=== PATIENT | male | born 1930 | race Caucasian/White ===

== ENCOUNTER 2017-11-12 14:12 | Emergency (ER) | payer MEDICARE ==
[~2017-11-12] VITALS: Ht 177.8 cm; Wt 80.0 kg
[~2017-11-12 14:12] MED LIST: AMIO100T4 PO; APIX5TAB PO; ASPI-496 PO; ASPI81TA50 PO; CYAN100028 PO; GUAR1TAB6 MT; LEVO50TA5 PO; LEVO75TA5 PO; LIOT5TAB3 PO; LOSA25TA2 PO; LOSA25TA6 PO; MELO15TA24 PO; METO-93 PO; METO25TA35 PO; METO25TA91 PO; OMEG300C PO; PRAS25CA6 MT; RED600TA PO
[2017-11-12] MEDS ORDERED: ASPIRIN 81 MG TABLET CHEW ONE (14:28)
[2017-11-12] MEDS ORDERED: SODIUM CHLORIDE FLUSH 10ML SYR IVF ONE (14:30)
[2017-11-12] MEDS ORDERED: PLEASE ENTER HEIGHT AND WEIGHT MC SCH (14:30)
[2017-11-12] MEDS ORDERED: ASPIRIN 81 MG TABLET CHEW PO ONE (14:30)
[2017-11-12 14:38] LABS: BASOPHILS # (AUTO) 0.06 x10^3/uL (0-0.1); BASOPHILS % (AUTO) 1 % (0-1); EOSINOPHILS # (AUTO) 0.29 x10^3/uL (0-0.4); EOSINOPHILS % (AUTO) 3 % (1-7); LYMPHOCYTES # (AUTO) 3.29 x10^3/uL (1-3.4); LYMPHOCYTES % (AUTO) 28 % (22-44); MD NO; MEAN CORPUSCULAR HEMOGLOBIN 31.7 pg (27.5-34.5); MEAN CORPUSCULAR HGB CONC 33.6 g/dL (33.2-36.2); MEAN CORPUSCULAR VOLUME 94.1 fL (81-97); MEAN PLATELET VOLUME 7.5 fL (7.4-10.4); MONOCYTES # (AUTO) 1.21 x10^3/uL (0.2-0.8); MONOCYTES % (AUTO) 10 % (2-9); NEUTROPHILS # (AUTO) 6.93 x10^3/uL (1.8-6.8); NEUTROPHILS % (AUTO) 59 % (42-75); PLATELET COUNT 270 x10^3/uL (130-400); RED BLOOD COUNT 5.11 x10^6/uL (4.38-5.82); RED CELL DISTRIBUTION WIDTH 14.6 % (9.4-14.8)
[2017-11-12] MEDS ORDERED: LEVO88TA4 PO (14:41)
[2017-11-12] MEDS ORDERED: ALLO100T30 PO (14:42)
[2017-11-12] MEDS ORDERED: multivitamin (14:42)
[2017-11-12 14:45] LABS: ALANINE AMINOTRANSFERASE 24 U/L (12-78); ALBUMIN 4.4 g/dL (3.4-5.0); ANION GAP 9 mmol/L (5-15); CALCIUM 9.1 mg/dL (8.5-10.1); CHLORIDE 105 mmol/L (98-107); CREATININE 1.19 mg/dL (0.7-1.3); INTERNATIONAL NORMALIZED RATIO 1.07 (0.93-1.1); PROTHROMBIN TIME 11.1 Seconds (9.6-11.5)
[2017-11-12 14:49] LABS: ALKALINE PHOSPHATASE 86 U/L (45-117); BILIRUBIN,TOTAL 0.5 mg/dL (0.2-1.0); TROPONIN I < 0.015 ng/mL (0.000-0.045)
[2017-11-12] MEDS ORDERED: MAALOX/HYOSCYAMINE/LIDOCAINE 45 ML BTL ONE (16:46)
[2017-11-12] MEDS ORDERED: MAALOX/HYOSCYAMINE/LIDOCAINE 45 ML BTL PO ONE (17:00)
[2017-11-12 17:55] VITALS: BP 158/97
== END 2017-11-12 18:09 | disposition home or self-care (01) ==
LOC: ED 17:40
DX: R07.89 Other chest pain (principal); E03.9 Hypothyroidism, unspecified; E78.00 Pure hypercholesterolemia, unspecified; I48.91 Unspecified atrial fibrillation; I10 Essential (primary) hypertension; Z95.0 Presence of cardiac pacemaker
CPT/HCPCS: 36415; 71045; 80053; 84484; 85025; 85610; 85730; 93005; 99285

== ENCOUNTER → 2017-11-25 | Outpatient (CLI) | payer MEDICARE ==
[~2017-11-25] MED LIST changes: +ALLO100T30 PO; +LEVO88TA4 PO; +multivitamin
== END | disposition home or self-care (01) ==
LOC: CFH 12:26
PROVIDERS: ATTEND Family Medicine
DX: M25.475 Effusion, left foot (principal)

== ENCOUNTER → 2018-08-28 | Outpatient (CLI) | payer MEDICARE ==
[~2018-08-28] MED LIST changes: +LOSA25TA25 PO; -LOSA25TA6 PO
== END | disposition home or self-care (01) ==
LOC: CFH 11:00
PROVIDERS: ATTEND Nurse Practitioner Family
DX: S33.130A Subluxation of L3/L4 lumbar vertebra, initial encounter (principal); I71.4 Abdominal aortic aneurysm, without rupture; M47.816 Spondylosis without myelopathy or radiculopathy, lumbar region; X58.XXXA Exposure to other specified factors, initial encounter; Y93.89 Activity, other specified; Y92.89 Other specified places as the place of occurrence of the external cause; Y99.8 Other external cause status
CPT/HCPCS: 72110

== ENCOUNTER 2019-10-12 09:48 | Outpatient (CLI) | payer MEDICARE ==
[~2019-10-12 09:48] MED LIST changes: +LIOT5TAB11 PO; -LIOT5TAB3 PO
[2019-10-13] MEDS ORDERED: APIX5TAB PO (19:42)
== END 2019-10-12 23:59 | disposition home or self-care (01) ==
LOC: CVU 09:48
PROVIDERS: ATTEND Internal Medicine Cardiovascular Disease
DX: I11.9 Hypertensive heart disease without heart failure (principal); I08.3 Combined rheumatic disorders of mitral, aortic and tricuspid valves; I25.10 Atherosclerotic heart disease of native coronary artery without angina pectoris; I48.0 Paroxysmal atrial fibrillation; E78.5 Hyperlipidemia, unspecified; Z95.0 Presence of cardiac pacemaker
CPT/HCPCS: 93306; 93880

== ENCOUNTER 2019-10-29 12:30 | Inpatient (IN) | payer MEDICARE ==
[~2019-10-29] VITALS: Ht 175.3 cm; Wt 83.3 kg
[~2019-10-29 12:30] MED LIST changes: +OXYC5TAB3 PO; +PANT40TA5 PO
[2019-10-29] MEDS ORDERED: DIPH,PERTUSS(ACELL),TET VAC/PF 0.5 ML IM-VACC ONE ×2 (13:17→13:30)
[2019-10-29] MEDS ORDERED: ONDANSETRON 2MG/ML, 2ML ONE (13:23)
[2019-10-29] MEDS ORDERED: SODIUM CHLORIDE FLUSH 10ML SYR IVF ONE (13:30)
--- NOTE | 2019-10-29 13:46 | NUR ---
LABS COMPLETED. AWAITING CT AT THIS TIME. PT RESTING COMFORTABLY IN BED. AT BEDSIDE. TDAP ADMIN.
[2019-10-29 13:52] LABS: ALBUMIN 2.8 g/dL (3.4-5.0); ANION GAP 8 mmol/L (5-15); CALCIUM 8.5 mg/dL (8.5-10.1); CHLORIDE 106 mmol/L (98-107); CREATININE 0.98 mg/dL (0.7-1.3)
[2019-10-29 13:53] LABS: BASOPHILS # (AUTO) 0.02 x10^3/uL (0-0.1); BASOPHILS % (AUTO) 0 % (0-1); EOSINOPHILS # (AUTO) 0.26 x10^3/uL (0-0.4); EOSINOPHILS % (AUTO) 2 % (1-7); LYMPHOCYTES # (AUTO) 1.54 x10^3/uL (1-3.4); LYMPHOCYTES % (AUTO) 14 % (22-44); MD NO; MEAN CORPUSCULAR HEMOGLOBIN 31.7 pg (27.5-34.5); MEAN CORPUSCULAR HGB CONC 33.1 g/dL (33.2-36.2); MEAN CORPUSCULAR VOLUME 95.9 fL (81-97); MEAN PLATELET VOLUME 7.5 fL (7.4-10.4); MONOCYTES # (AUTO) 1.29 x10^3/uL (0.2-0.8); MONOCYTES % (AUTO) 12 % (2-9); NEUTROPHILS % (AUTO) 72 % (42-75); PLATELET COUNT 543 x10^3/uL (130-400); RED CELL DISTRIBUTION WIDTH 16.6 % (9.4-14.8)
[2019-10-29 14:00] LABS: INTERNATIONAL NORMALIZED RATIO 1.09 (0.93-1.1); PROTHROMBIN TIME 11.2 Seconds (9.6-11.5)
--- NOTE | 2019-10-29 14:21 | NUR ---
PT TO CT NOW
[2019-10-29] MEDS ORDERED: OMNIPAQUE 350 MG/ML, 100ML BOTTLE ONE (14:45)
--- NOTE | 2019-10-29 15:22 | NUR ---
BREAK RN: PT RESTING ON YANG. NADN. FREITAS.
[2019-10-29] MEDS ORDERED: ONDANSETRON ODT 4 MG PO PRN (17:00)
[2019-10-29] MEDS ORDERED: hydrALAzine 20 MG/ML, 1ML IVPush PRN (17:00)
[2019-10-29] MEDS ORDERED: LABETALOL 5MG/ML, 20ML IVPush PRN (17:00)
[2019-10-29] MEDS ORDERED: ONDANSETRON 2MG/ML, 2ML IVPush PRN (17:00)
[2019-10-29] MEDS ORDERED: GUAIFENESIN/DM 200-20MG, 10ML UDC PO PRN (17:00)
[2019-10-29] MEDS ORDERED: MELATONIN 5 MG TABLET PO PRN (17:00)
[2019-10-29] MEDS ORDERED: BUTALB/APAP/CAFFEINE 50MG/325MG/40MG PO PRN (17:00)
[2019-10-29 19:50] VITALS: BP 115/75
[2019-10-30 01:52] VITALS: BP 110/70
[2019-10-30 06:11] LABS: BASOPHILS # (AUTO) 0.02 x10^3/uL (0-0.1); BASOPHILS % (AUTO) 0 % (0-1); EOSINOPHILS # (AUTO) 0.31 x10^3/uL (0-0.4); EOSINOPHILS % (AUTO) 3 % (1-7); LYMPHOCYTES # (AUTO) 1.73 x10^3/uL (1-3.4); LYMPHOCYTES % (AUTO) 18 % (22-44); MD NO; MEAN CORPUSCULAR HEMOGLOBIN 31.3 pg (27.5-34.5); MEAN CORPUSCULAR HGB CONC 32.7 g/dL (33.2-36.2); MEAN CORPUSCULAR VOLUME 95.7 fL (81-97); MEAN PLATELET VOLUME 7.9 fL (7.4-10.4); MONOCYTES # (AUTO) 1.36 x10^3/uL (0.2-0.8); MONOCYTES % (AUTO) 14 % (2-9); NEUTROPHILS # (AUTO) 6.08 x10^3/uL (1.8-6.8); NEUTROPHILS % (AUTO) 64 % (42-75); PLATELET COUNT 505 x10^3/uL (130-400); RED BLOOD COUNT 3.01 x10^6/uL (4.38-5.82); RED CELL DISTRIBUTION WIDTH 16.3 % (9.4-14.8)
[2019-10-30 06:24] LABS: ALANINE AMINOTRANSFERASE 110 U/L (12-78); ALBUMIN 2.8 g/dL (3.4-5.0); ANION GAP 9 mmol/L (5-15); CALCIUM 8.7 mg/dL (8.5-10.1); CHLORIDE 109 mmol/L (98-107); CREATININE 0.87 mg/dL (0.7-1.3)
[2019-10-30 06:26] LABS: ALKALINE PHOSPHATASE 139 U/L (45-117); BILIRUBIN,TOTAL 0.7 mg/dL (0.2-1.0); TOTAL PROTEIN 6.1 g/dL (6.4-8.2)
[2019-10-30 07:19] VITALS: BP 118/73
[2019-10-30] MEDS: SENNA/DOCUSATE TABLET PO SCH (09:00)
[2019-10-30] MEDS: D5%-0.45NACL+KCL 20MEQ 1,000 ML IV SCH ×2 (12:09→22:50)
[2019-10-30 15:26] VITALS: BP 98/56
[2019-10-30] MEDS: PANTOPRAZOLE 40 MG IV IVPush SCH ×2 (15:30→22:50)
[2019-10-30 16:40] LABS: MEAN CORPUSCULAR HEMOGLOBIN 30.7 pg (27.5-34.5); MEAN CORPUSCULAR HGB CONC 31.5 g/dL (33.2-36.2); MEAN CORPUSCULAR VOLUME 97.7 fL (81-97); MEAN PLATELET VOLUME 6.9 fL (7.4-10.4); PLATELET COUNT 520 x10^3/uL (130-400); RED BLOOD COUNT 3.05 x10^6/uL (4.38-5.82); RED CELL DISTRIBUTION WIDTH 17.4 % (9.4-14.8)
[2019-10-30 17:08] LABS: BASOPHILS # (AUTO) 0.03 x10^3/uL (0-0.1); BASOPHILS % (AUTO) 0 % (0-1); EOSINOPHILS % (AUTO) 0 % (1-7); LYMPHOCYTES # (AUTO) 1.47 x10^3/uL (1-3.4); LYMPHOCYTES % (AUTO) 15 % (22-44); MD SCAN; MONOCYTES # (AUTO) 1.29 x10^3/uL (0.2-0.8); MONOCYTES % (AUTO) 13 % (2-9); NEUTROPHILS # (AUTO) 6.82 x10^3/uL (1.8-6.8); NEUTROPHILS % (AUTO) 71 % (42-75)
[2019-10-30 19:09] VITALS: BP 110/68
[2019-10-31 01:04] VITALS: BP 113/71
[2019-10-31 05:52] LABS: BASOPHILS # (AUTO) 0.03 x10^3/uL (0-0.1); BASOPHILS % (AUTO) 0 % (0-1); EOSINOPHILS # (AUTO) 0.41 x10^3/uL (0-0.4); EOSINOPHILS % (AUTO) 5 % (1-7); LYMPHOCYTES # (AUTO) 1.63 x10^3/uL (1-3.4); LYMPHOCYTES % (AUTO) 21 % (22-44); MD NO; MEAN CORPUSCULAR HEMOGLOBIN 31.3 pg (27.5-34.5); MEAN CORPUSCULAR HGB CONC 32.6 g/dL (33.2-36.2); MEAN CORPUSCULAR VOLUME 96.1 fL (81-97); MEAN PLATELET VOLUME 7.4 fL (7.4-10.4); MONOCYTES % (AUTO) 15 % (2-9); NEUTROPHILS # (AUTO) 4.64 x10^3/uL (1.8-6.8); NEUTROPHILS % (AUTO) 59 % (42-75); PLATELET COUNT 493 x10^3/uL (130-400); RED BLOOD COUNT 2.85 x10^6/uL (4.38-5.82); RED CELL DISTRIBUTION WIDTH 16.4 % (9.4-14.8)
[2019-10-31 06:00] LABS: ALBUMIN 2.5 g/dL (3.4-5.0); ANION GAP 6 mmol/L (5-15); CALCIUM 8.6 mg/dL (8.5-10.1); CHLORIDE 111 mmol/L (98-107); CREATININE 0.82 mg/dL (0.7-1.3)
[2019-10-31 06:38] VITALS: BP 102/64
[2019-10-31] MEDS: PANTOPRAZOLE 40 MG IV IVPush SCH ×2 (07:35→22:31)
[2019-10-31] MEDS: D5%-0.45NACL+KCL 20MEQ 1,000 ML IV SCH ×2 (07:35→22:31)
[2019-10-31] MEDS: SENNA/DOCUSATE TABLET PO SCH (07:35)
[2019-10-31] MEDS ORDERED: ALLOPURINOL 100 MG TABLET PO SCH (11:30)
[2019-10-31] MEDS: MULTIVITS,STRESS FORMULA 1 TABLET PO SCH (11:57)
[2019-10-31] MEDS: ALLOPURINOL 100 MG TABLET PO SCH (11:57)
[2019-10-31] MEDS: ZINC SULFATE 220 MG CAPSULE PO SCH (11:57)
[2019-10-31] MEDS: CHOLECALCIFEROL 5,000u TAB PO SCH (11:57)
[2019-10-31 12:21] VITALS: BP 108/71
[2019-10-31] MEDS: ASCORBIC ACID 500 MG TABLET PO SCH (17:05)
[2019-10-31 18:47] VITALS: BP 112/68
[2019-11-01 01:23] VITALS: BP 99/63
[2019-11-01 05:51] LABS: BASOPHILS # (AUTO) 0.03 x10^3/uL (0-0.1); BASOPHILS % (AUTO) 0 % (0-1); EOSINOPHILS # (AUTO) 0.39 x10^3/uL (0-0.4); EOSINOPHILS % (AUTO) 5 % (1-7); LYMPHOCYTES # (AUTO) 1.65 x10^3/uL (1-3.4); LYMPHOCYTES % (AUTO) 21 % (22-44); MD NO; MEAN CORPUSCULAR HEMOGLOBIN 31.8 pg (27.5-34.5); MEAN CORPUSCULAR HGB CONC 33.1 g/dL (33.2-36.2); MEAN CORPUSCULAR VOLUME 96.1 fL (81-97); MEAN PLATELET VOLUME 7.8 fL (7.4-10.4); MONOCYTES # (AUTO) 1.08 x10^3/uL (0.2-0.8); MONOCYTES % (AUTO) 14 % (2-9); NEUTROPHILS # (AUTO) 4.63 x10^3/uL (1.8-6.8); NEUTROPHILS % (AUTO) 60 % (42-75); PLATELET COUNT 477 x10^3/uL (130-400); RED BLOOD COUNT 2.94 x10^6/uL (4.38-5.82); RED CELL DISTRIBUTION WIDTH 16.2 % (9.4-14.8)
[2019-11-01 06:02] LABS: ALBUMIN 2.7 g/dL (3.4-5.0); ANION GAP 7 mmol/L (5-15); CALCIUM 8.3 mg/dL (8.5-10.1); CHLORIDE 110 mmol/L (98-107); CREATININE 0.84 mg/dL (0.7-1.3)
[2019-11-01 06:52] VITALS: BP 126/76
[2019-11-01] MEDS: PANTOPRAZOLE 40 MG IV IVPush SCH ×2 (08:00→20:54)
[2019-11-01] MEDS: MULTIVITS,STRESS FORMULA 1 TABLET PO SCH (08:00)
[2019-11-01] MEDS: D5%-0.45NACL+KCL 20MEQ 1,000 ML IV SCH (08:00)
[2019-11-01] MEDS: SENNA/DOCUSATE TABLET PO SCH (08:00)
[2019-11-01] MEDS: ZINC SULFATE 220 MG CAPSULE PO SCH (08:08)
[2019-11-01] MEDS: CHOLECALCIFEROL 5,000u TAB PO SCH (08:08)
[2019-11-01] MEDS: ASCORBIC ACID 500 MG TABLET PO SCH ×2 (08:09→17:37)
[2019-11-01] MEDS: ALLOPURINOL 100 MG TABLET PO SCH (08:09)
[2019-11-01 12:30] VITALS: BP 111/74
[2019-11-01 13:00] VITALS: BP 113/74
[2019-11-01 13:12] LABS: MEAN CORPUSCULAR HEMOGLOBIN 31.2 pg (27.5-34.5); MEAN CORPUSCULAR HGB CONC 32.4 g/dL (33.2-36.2); MEAN CORPUSCULAR VOLUME 96.3 fL (81-97); MEAN PLATELET VOLUME 7.3 fL (7.4-10.4); PLATELET COUNT 523 x10^3/uL (130-400); RED BLOOD COUNT 3.32 x10^6/uL (4.38-5.82); RED CELL DISTRIBUTION WIDTH 16.4 % (9.4-14.8)
[2019-11-01 13:23] LABS: TROPONIN I < 0.015 ng/mL (0.000-0.045)
[2019-11-01 13:44] LABS: BASOPHILS # (AUTO) 0.03 x10^3/uL (0-0.1); BASOPHILS % (AUTO) 0 % (0-1); EOSINOPHILS # (AUTO) 0.53 x10^3/uL (0-0.4); EOSINOPHILS % (AUTO) 5 % (1-7); LYMPHOCYTES # (AUTO) 2.67 x10^3/uL (1-3.4); LYMPHOCYTES % (AUTO) 25 % (22-44); MD SCAN; MONOCYTES # (AUTO) 1.48 x10^3/uL (0.2-0.8); MONOCYTES % (AUTO) 14 % (2-9); NEUTROPHILS # (AUTO) 6.17 x10^3/uL (1.8-6.8); NEUTROPHILS % (AUTO) 57 % (42-75)
[2019-11-01] MEDS ORDERED: OMNIPAQUE 350 MG/ML, 100ML BOTTLE ONE (15:09)
[2019-11-01 18:49] LABS: TROPONIN I < 0.015 ng/mL (0.000-0.045)
[2019-11-01 20:41] VITALS: BP 114/69
[2019-11-02] MEDS ORDERED: LACTATED RINGERS 1,000 ML IV SCH
[2019-11-02 00:01] VITALS: BP 117/70
[2019-11-02 04:53] LABS: BASOPHILS # (AUTO) 0.03 x10^3/uL (0-0.1); BASOPHILS % (AUTO) 0 % (0-1); EOSINOPHILS # (AUTO) 0.35 x10^3/uL (0-0.4); EOSINOPHILS % (AUTO) 4 % (1-7); LYMPHOCYTES # (AUTO) 1.96 x10^3/uL (1-3.4); LYMPHOCYTES % (AUTO) 23 % (22-44); MD NO; MEAN CORPUSCULAR HEMOGLOBIN 31.4 pg (27.5-34.5); MEAN CORPUSCULAR HGB CONC 32.7 g/dL (33.2-36.2); MEAN PLATELET VOLUME 7.8 fL (7.4-10.4); MONOCYTES # (AUTO) 1.04 x10^3/uL (0.2-0.8); MONOCYTES % (AUTO) 12 % (2-9); NEUTROPHILS # (AUTO) 5.07 x10^3/uL (1.8-6.8); NEUTROPHILS % (AUTO) 60 % (42-75); PLATELET COUNT 441 x10^3/uL (130-400); RED BLOOD COUNT 2.82 x10^6/uL (4.38-5.82); RED CELL DISTRIBUTION WIDTH 16.3 % (9.4-14.8)
[2019-11-02] MEDS: LEVOTHYROXINE 88 MCG TABLET PO SCH (05:52)
[2019-11-02] MEDS ORDERED: CHLORHEXIDINE 15 ML UDC MM ONE (06:30)
[2019-11-02 06:35] VITALS: BP 111/64
[2019-11-02] MEDS: SENNA/DOCUSATE TABLET PO SCH (07:26)
[2019-11-02] MEDS: PANTOPRAZOLE 40 MG IV IVPush SCH ×2 (07:35→20:09)
[2019-11-02] MEDS: ASCORBIC ACID 500 MG TABLET PO SCH (08:00)
[2019-11-02] MEDS ORDERED: PROPOFOL 10 MG/ML, 100ML IV ONE (08:44)
[2019-11-02] MEDS: ZINC SULFATE 220 MG CAPSULE PO SCH (09:00)
[2019-11-02] MEDS: CHOLECALCIFEROL 5,000u TAB PO SCH (09:00)
[2019-11-02] MEDS: ALLOPURINOL 100 MG TABLET PO SCH (09:00)
[2019-11-02] MEDS: MULTIVITS,STRESS FORMULA 1 TABLET PO SCH (09:00)
[2019-11-02 12:29] VITALS: BP 114/65
[2019-11-02] MEDS ORDERED: OMNIPAQUE 350 MG/ML, 75ML BOTTLE ONE (16:41)
[2019-11-02 19:18] VITALS: BP 107/69
[2019-11-02 23:53] VITALS: BP 106/67
[2019-11-03] MEDS: LEVOTHYROXINE 88 MCG TABLET PO SCH (05:23)
[2019-11-03 05:31] LABS: BASOPHILS # (AUTO) 0.03 x10^3/uL (0-0.1); BASOPHILS % (AUTO) 0 % (0-1); EOSINOPHILS # (AUTO) 0.41 x10^3/uL (0-0.4); EOSINOPHILS % (AUTO) 5 % (1-7); LYMPHOCYTES # (AUTO) 1.95 x10^3/uL (1-3.4); LYMPHOCYTES % (AUTO) 24 % (22-44); MD NO; MEAN CORPUSCULAR HEMOGLOBIN 31.5 pg (27.5-34.5); MEAN CORPUSCULAR VOLUME 95.3 fL (81-97); MEAN PLATELET VOLUME 7.6 fL (7.4-10.4); MONOCYTES # (AUTO) 0.85 x10^3/uL (0.2-0.8); MONOCYTES % (AUTO) 11 % (2-9); NEUTROPHILS # (AUTO) 4.76 x10^3/uL (1.8-6.8); NEUTROPHILS % (AUTO) 60 % (42-75); PLATELET COUNT 430 x10^3/uL (130-400); RED CELL DISTRIBUTION WIDTH 16.4 % (9.4-14.8)
[2019-11-03 05:43] LABS: ANION GAP 9 mmol/L (5-15); CALCIUM 8.7 mg/dL (8.5-10.1); CHLORIDE 108 mmol/L (98-107)
[2019-11-03 05:45] LABS: CREATININE 0.76 mg/dL (0.7-1.3)
[2019-11-03] MEDS ORDERED: POTASSIUM CHLORIDE 20 MEQ TAB.ER.PRT PO ONE (06:30)
[2019-11-03 06:38] VITALS: BP 110/68
[2019-11-03] MEDS ORDERED: FENTANYL PF 100 MCG/2ML IV PRN (08:00)
[2019-11-03] MEDS: SENNA/DOCUSATE TABLET PO SCH (08:06)
[2019-11-03] MEDS: MULTIVITS,STRESS FORMULA 1 TABLET PO SCH (08:06)
[2019-11-03] MEDS: ALLOPURINOL 100 MG TABLET PO SCH (08:06)
[2019-11-03] MEDS: PANTOPRAZOLE 40 MG IV IVPush SCH (08:10)
[2019-11-03] MEDS ORDERED: CHLORHEXIDINE 15 ML UDC ONE (08:28)
[2019-11-03] MEDS ORDERED: FENTANYL PF 100 MCG/2ML ONE (08:50)
[2019-11-03] MEDS ORDERED: SUCCINYLCHOLINE 20 MG/ML, 10ML ONE (08:57)
[2019-11-03] MEDS ORDERED: PROPOFOL 10 MG/ML, 20ML ONE (08:57)
[2019-11-03 12:14] VITALS: BP 105/64
== END 2019-11-03 17:34 | disposition home or self-care (01) | DRG 394 ==
LOC: ED 13:28 → EDIP 16:06 → 3N 18:51 → 5SO 11-01 13:21
PROVIDERS: ADMIT Internal Medicine; ATTEND Internal Medicine
PROC: 0DB58ZX Excision of Esophagus, Via Natural or Artificial Opening Endoscopic, Diagnostic (ICD-10-PCS; principal; 2019-11-02 08:15)
PROC: 0DB48ZX Excision of Esophagogastric Junction, Via Natural or Artificial Opening Endoscopic, Diagnostic (ICD-10-PCS; 2019-11-03)
DX: K92.89 Other specified diseases of the digestive system (principal); K92.1 Melena; E44.0 Moderate protein-calorie malnutrition; D68.59 Other primary thrombophilia; D62 Acute posthemorrhagic anemia; D72.829 Elevated white blood cell count, unspecified; R55 Syncope and collapse; R79.89 Other specified abnormal findings of blood chemistry; I48.91 Unspecified atrial fibrillation; Z95.0 Presence of cardiac pacemaker; I10 Essential (primary) hypertension; E03.9 Hypothyroidism, unspecified; E78.5 Hyperlipidemia, unspecified; M10.9 Gout, unspecified; I25.10 Atherosclerotic heart disease of native coronary artery without angina pectoris; R19.09 Other intra-abdominal and pelvic swelling, mass and lump; Z68.27 Body mass index [BMI] 27.0-27.9, adult; E78.00 Pure hypercholesterolemia, unspecified; K44.9 Diaphragmatic hernia without obstruction or gangrene; R29.6 Repeated falls; W06.XXXA Fall from bed, initial encounter; Z79.01 Long term (current) use of anticoagulants; Z95.5 Presence of coronary angioplasty implant and graft; W18.39XA Other fall on same level, initial encounter; Y93.89 Activity, other specified; Y92.89 Other specified places as the place of occurrence of the external cause; Y99.8 Other external cause status
CPT/HCPCS: 36415; 70450; 71260; 72125; 74174; 74177; 78278; 80048; 80053; 80069; 82040; 82728; 82962; 83540; 83550; 83735; 84484; 85014; 85018; 85025; 85610; 85730; 86850; 86900; 87635; 88104; 88305; 88333; 90715; 93005; G0378; J2704; J3010; Q9967; A9560; C9113; C9898; J0330; J3480; J7120

== ENCOUNTER 2019-11-20 07:42 | Outpatient (CLI) | payer MEDICARE ==
[~2019-11-20 07:42] MED LIST changes: -PANT40TA5 PO; +PANT40TA6 PO
== END 2019-11-20 23:59 | disposition home or self-care (01) ==
LOC: ROC 07:42
PROVIDERS: ATTEND Radiology Radiation Oncology
DX: C15.9 Malignant neoplasm of esophagus, unspecified (principal); I25.10 Atherosclerotic heart disease of native coronary artery without angina pectoris; I12.9 Hypertensive chronic kidney disease with stage 1 through stage 4 chronic kidney disease, or unspecified chronic kidney disease; N18.3 Chronic kidney disease, stage 3 (moderate); I11.9 Hypertensive heart disease without heart failure; E78.5 Hyperlipidemia, unspecified; E03.9 Hypothyroidism, unspecified; E78.00 Pure hypercholesterolemia, unspecified; Z79.01 Long term (current) use of anticoagulants; Z95.5 Presence of coronary angioplasty implant and graft; Z79.899 Other long term (current) drug therapy
CPT/HCPCS: G0463

== ENCOUNTER → 2019-11-25 | Outpatient (CLI) | payer MEDICARE | END | disposition home or self-care (01) | LOC: PETCFH 11-24 12:27 | PROVIDERS: ATTEND Radiology Radiation Oncology | DX: C15.9 Malignant neoplasm of esophagus, unspecified (principal); K44.9 Diaphragmatic hernia without obstruction or gangrene; J92.9 Pleural plaque without asbestos; I25.10 Atherosclerotic heart disease of native coronary artery without angina pectoris; I71.4 Abdominal aortic aneurysm, without rupture | CPT/HCPCS: 78815; A9552 ==

== ENCOUNTER 2019-12-02 10:05 | Outpatient (CLI) | payer MEDICARE | END 2019-12-02 23:59 | disposition home or self-care (01) | LOC: ROC 10:05 | PROVIDERS: ATTEND Radiology Radiation Oncology | DX: C15.5 Malignant neoplasm of lower third of esophagus (principal); I12.9 Hypertensive chronic kidney disease with stage 1 through stage 4 chronic kidney disease, or unspecified chronic kidney disease; N18.3 Chronic kidney disease, stage 3 (moderate); I11.9 Hypertensive heart disease without heart failure; I25.10 Atherosclerotic heart disease of native coronary artery without angina pectoris; I48.0 Paroxysmal atrial fibrillation; E78.5 Hyperlipidemia, unspecified; E03.9 Hypothyroidism, unspecified; Z79.01 Long term (current) use of anticoagulants; Z79.899 Other long term (current) drug therapy; Z95.5 Presence of coronary angioplasty implant and graft | CPT/HCPCS: G0463 ==

== ENCOUNTER 2020-01-28 08:33 | Emergency (ER) | payer MEDICARE ==
[~2020-01-28] VITALS: Ht 175.3 cm; Wt 69.7 kg
[2020-01-28] MEDS ORDERED: SODIUM CHLORIDE FLUSH 10ML SYR IVF ONE (09:00)
[2020-01-28] MEDS ORDERED: NITR0.4T28 SL (09:15)
[2020-01-28] MEDS ORDERED: APIX2.5T PO (09:15)
[2020-01-28] MEDS ORDERED: DILT30TA33 PO (09:15)
[2020-01-28] MEDS ORDERED: EZET10TA70 PO (09:15)
[2020-01-28 09:20] LABS: BASOPHILS % (AUTO) 1 % (0-1); EOSINOPHILS % (AUTO) 1 % (1-7); LYMPHOCYTES % (AUTO) 25 % (22-44); MEAN CORPUSCULAR HEMOGLOBIN 29.6 pg (27.5-34.5); MEAN PLATELET VOLUME 7.4 fL (7.4-10.4); MONOCYTES % (AUTO) 9 % (2-9); NEUTROPHILS % (AUTO) 63 % (42-75); PLATELET COUNT 331 x10^3/uL (130-400); RED BLOOD COUNT 4.85 x10^6/uL (4.38-5.82); RED CELL DISTRIBUTION WIDTH 15.3 % (9.4-14.8)
[2020-01-28 09:26] LABS: MD NO
[2020-01-28 09:37] LABS: ANION GAP 10 mmol/L (5-15); CHLORIDE 105 mmol/L (98-107)
[2020-01-28 09:38] LABS: ALANINE AMINOTRANSFERASE 16 U/L (12-78); ALBUMIN 3.9 g/dL (3.4-5.0); ALKALINE PHOSPHATASE 117 U/L (45-117); BILIRUBIN,TOTAL 0.6 mg/dL (0.2-1.0); CALCIUM 9.7 mg/dL (8.5-10.1); CREATININE 0.92 mg/dL (0.7-1.3); TOTAL PROTEIN 7.9 g/dL (6.4-8.2)
--- NOTE | 2020-01-28 09:38 | NUR ---
plan ct abd, labs drawn, piv est, pt resting vss at bedside. as
--- NOTE | 2020-01-28 10:08 | NUR ---
awaiting ua, vss, nad. as
[2020-01-28 10:10] LABS: INTERNATIONAL NORMALIZED RATIO 1.05 (0.93-1.1); PROTHROMBIN TIME 11.1 Seconds (9.6-11.5)
--- NOTE | 2020-01-28 10:45 | NUR ---
back, attempting ua. as
--- NOTE | 2020-01-28 10:57 | NUR ---
ua to lab. as
[2020-01-28 11:03] LABS: MICROSCOPIC NOT IND
[2020-01-28] MEDS ORDERED: OMNIPAQUE 350 MG/ML, 100ML BOTTLE ONE (12:03)
--- NOTE | 2020-01-28 12:05 | NUR ---
TBDC, IV TAKEN OUT. PA WAS IN ROOM FOR RE EVAL.
--- NOTE | 2020-01-28 12:11 | NUR ---
AWAITING GI PRIOR TO DC.
--- NOTE | 2020-01-28 12:52 | NUR ---
CONT TO AWAIT GI.
[2020-01-28 13:35] VITALS: BP 142/86
== END 2020-01-28 13:37 | disposition home or self-care (01) ==
LOC: ED 10:12
DX: C80.1 Malignant (primary) neoplasm, unspecified (principal); R10.84 Generalized abdominal pain; I10 Essential (primary) hypertension; I48.91 Unspecified atrial fibrillation; E03.9 Hypothyroidism, unspecified; E78.5 Hyperlipidemia, unspecified
CPT/HCPCS: 36415; 74174; 80053; 81003; 85025; 85610; 86850; 86900; 99285; Q9967

== ENCOUNTER 2020-02-05 07:34 | Emergency (ER) | payer MEDICARE ==
[~2020-02-05] VITALS: Ht 175.3 cm; Wt 70.0 kg
[~2020-02-05 07:34] MED LIST changes: +APIX2.5T PO; +DILT30TA33 PO; +EZET10TA70 PO; +NITR0.4T28 SL
[2020-02-05] MEDS ORDERED: OMEP-110 PO (07:43)
--- NOTE | 2020-02-05 07:43 | NUR ---
DIRECTOR INTERNAL CONTROL: HOME MEDICATION VERIFIED WITH .
[2020-02-05] MEDS ORDERED: SODIUM CHLORIDE 0.9% 1,000 ML IV ONE (08:00)
[2020-02-05] MEDS ORDERED: SODIUM CHLORIDE 0.9% 1,000ML IVBOLUS ONE (08:00)
[2020-02-05 08:30] LABS: BASOPHILS % (AUTO) 0 % (0-1); EOSINOPHILS % (AUTO) 1 % (1-7); LYMPHOCYTES % (AUTO) 17 % (22-44); MEAN CORPUSCULAR HEMOGLOBIN 29.5 pg (27.5-34.5); MEAN CORPUSCULAR HGB CONC 32.8 g/dL (33.2-36.2); MEAN PLATELET VOLUME 7.5 fL (7.4-10.4); MONOCYTES % (AUTO) 10 % (2-9); NEUTROPHILS % (AUTO) 73 % (42-75); PLATELET COUNT 393 x10^3/uL (130-400); RED BLOOD COUNT 4.52 x10^6/uL (4.38-5.82); RED CELL DISTRIBUTION WIDTH 15.6 % (9.4-14.8)
[2020-02-05 08:35] LABS: MD NO
[2020-02-05 08:42] LABS: ANION GAP 9 mmol/L (5-15); CALCIUM 9.4 mg/dL (8.5-10.1); CHLORIDE 105 mmol/L (98-107)
[2020-02-05 08:46] LABS: ALANINE AMINOTRANSFERASE 30 U/L (12-78); ALKALINE PHOSPHATASE 100 U/L (45-117); BILIRUBIN,TOTAL 0.6 mg/dL (0.2-1.0); CREATININE 0.88 mg/dL (0.7-1.3); TOTAL PROTEIN 6.6 g/dL (6.4-8.2)
--- NOTE | 2020-02-05 10:46 | NUR ---
palliative care at bedside.
[2020-02-05 11:29] VITALS: BP 126/76
== END 2020-02-05 12:04 | disposition home or self-care (01) ==
LOC: ED 08:50
DX: C80.1 Malignant (primary) neoplasm, unspecified (principal); R11.2 Nausea with vomiting, unspecified; R10.31 Right lower quadrant pain; I10 Essential (primary) hypertension; I48.91 Unspecified atrial fibrillation; E78.5 Hyperlipidemia, unspecified; Z95.0 Presence of cardiac pacemaker
CPT/HCPCS: 36415; 74022; 80053; 83690; 85025; 96360; 96361; 99284; J7030